=== PATIENT | male | born 1990 | race African-American/Black ===

== ENCOUNTER 2017-03-07 19:17 | Emergency (ER) | payer OTHER ==
[~2017-03-07] VITALS: Ht 177.8 cm; Wt 81.7 kg
[~2017-03-07 19:17] MED LIST: AMITRIPTYLINE H10 M3 PO; CARAFATE 11 GM/10 M1 PO; NOHOMEMEDICATIONS; PROMETHAZI6.25 MG/2 PO; ZANTAC 150MG T150 MG PO
[2017-03-07 20:05] LABS: ABSOLUTE NEUTROPHILS 3.6 thou/uL (1.4-8.2); BASOPHILS 0.6 % (0.0-2.0); EOSINOPHILS 2.2 % (0.0-3.0); HEMATOCRIT 42.4 % (42.0-52.0); HEMOGLOBIN 14.3 gm/dL (14.0-18.0); LYMPHOCYTES 41.7 % (24.0-44.0); MCH 26.9 pg (26.0-34.0); MCHC 33.8 g/dL (28.0-37.0); MCV 79.4 fL (80.0-100.0); MONOCYTES 5.9 % (1.0-8.0); PLATELET COUNT 264 thou/uL (150-400); POLYS 49.6 % (36.0-66.0); RBC 5.34 mil/uL (4.50-6.00); RDW 13.7 % (10.5-14.5); WBC 7.3 thou/uL (4.0-11.0)
[2017-03-07 20:06] LABS: MANUAL DIFF NO
[2017-03-07 20:11] LABS: CALCIUM 9.3 mg/dL (8.5-10.1); CREATININE 0.9 mg/dL (0.7-1.3); POTASSIUM 3.9 mmol/L (3.5-5.1)
[2017-03-07 20:21] LABS: APTT 25.9 Seconds (24.5-32.8); PROTIME 10.5 Seconds (9.3-11.4)
[2017-03-07] MEDS ORDERED: OMEPRAZOLE40 MG PO (20:51)
[2017-03-07] MEDS ORDERED: PEPCID20 MG PO (20:52)
[2017-03-07] MEDS ORDERED: LEXAPRO 10 MG T10 M2 PO (20:53)
[2017-03-07] MEDS ORDERED: ANUSOL-HC25 MG RECTAL (21:07)
[2017-03-07 21:29] VITALS: BP 124/70
== END 2017-03-07 22:17 | disposition home or self-care (01) ==
LOC: ER 19:17
PROVIDERS: Emergency Medicine
DX: K62.89 Other specified diseases of anus and rectum (principal)